=== PATIENT | female | born 1985 | race African-American/Black ===

== ENCOUNTER 2019-04-28 17:42 | Emergency (ER) | payer SELFPAY ==
[~2019-04-28] VITALS: Ht 170.2 cm; Wt 90.7 kg
[2019-04-28 17:48] VITALS: BP_SYST 143
--- NOTE | 2019-04-28 17:48 | NUR ---
Placed in room 8. Placed on quality assurance monitor body, blood pressure machine and pulse oximeter. To gown for exam. Side rails up. Report given to Claribel STEWART.
--- NOTE | 2019-04-28 17:50 | NUR ---
Pt BIB EMS s/p 2 min tonic clonic seizure. Pt able to comprehend verbal questions, but only able to respond by nodding and shaking head. Denies n/v/d/sob/cp. No other injuries/complaints per pt/noted. Will continue to monitor.
[2019-04-28] MEDS ORDERED: levETIRAcetam 500 MG in NS 100 ML IV ONE (18:00)
--- NOTE | 2019-04-28 18:10 | NUR ---
Keppra 500mg/100mL NS not loaded in pyxis. Pharmacy was informed. Per pharmacy, medication will be brought to ED.
[2019-04-28 18:14] LABS: BASOPHILS % (AUTO) 0.4 % (0.0-2.0); EOSINOPHILS # (AUTO) 0.1 K/uL (0.0-0.4); EOSINOPHILS % (AUTO) 0.9 % (0.0-4.0); HEMATOCRIT 36.8 % (36-48); HEMOGLOBIN 11.7 g/dL (12.0-16.0); LYMPHOCYTES % (AUTO) 40.8 % (20.5-51.5); MEAN CORPUSCULAR HEMOGLOBIN 24 pg (27-31); MEAN CORPUSCULAR HGB CONC 32 % (32-36); MEAN CORPUSCULAR VOLUME 77 fL (79.0-98.0); MONOCYTES # (AUTO) 0.6 K/uL (0.0-1.0); MONOCYTES % (AUTO) 8.2 % (1.7-9.3); NEUTROPHILS # (AUTO) 3.6 K/uL (1.8-7.7); NEUTROPHILS % (AUTO) 49.7 % (40.0-70.0); PLATELET COUNT (AUTO) 349 K/uL (130-430); RED BLOOD CELL COUNT(AUTO) 4.81 MIL/uL (4.2-6.2); RED CELL DISTRIBUTION WIDTH 15.3 % (9.0-15.0); WHITE BLOOD COUNT (AUTO) 7.3 K/uL (4.8-10.8)
[2019-04-28 18:22] LABS: CALCIUM 9.8 mg/dL (8.4-11.0); CREATININE 1.09 mg/dL (0.55-1.30); POTASSIUM 3.5 mmol/L (3.5-5.1)
[2019-04-28 18:27] LABS: ALBUMIN 3.7 g/dL (3.4-4.8); TOTAL BILIRUBIN 0.3 mg/dL (0.0-1.0)
--- NOTE | 2019-04-28 18:40 | NUR ---
PT taken to radiology via [facility] in stable condition accompanied by Claribel STEWART.
--- NOTE | 2019-04-28 18:55 | NUR ---
Medication administered. Pt tolerated well. No adverse reactions noted.
--- NOTE | 2019-04-28 19:44 | NUR ---
Pt resting comfortably in bed with no signs of distress.
--- NOTE | 2019-04-28 20:15 | NUR ---
Pt now speaking in full sentences, states "My head hurts and my body is on fire." ER Dr. Quiroz at examining updating patient.
[2019-04-28] MEDS ORDERED: ONDANSETRON HCL 4 MG/2 ML VIAL IVP ONE (20:30)
[2019-04-28] MEDS ORDERED: KETOROLAC TROMETHAMINE 30 MG VIAL IVP ONE (20:30)
--- NOTE | 2019-04-28 20:41 | NUR ---
Medication administered. Pt tolerated well. No adverse reactions noted.
[2019-04-28 21:12] VITALS: BP_SYST 136
--- NOTE | 2019-04-28 21:12 | NUR ---
Patient given written and verbal discharge instructions and verbalizes understanding. ER MD discussed with patient the results and treatment provided. Patient in stable condition. ID arm band removed. IV catheter removed intact and dressing applied, no active bleeding. Rx of Zofran and Ativan given. Patient educated on pain management and to follow up with PMD. Pain Scale 0. Opportunity for questions provided and answered. Medication side effect fact sheet provided.
== END 2019-04-28 21:12 | disposition home or self-care (01) ==
LOC: SED 17:42
DX: G40.802 Other epilepsy, not intractable, without status epilepticus (principal); Z88.0 Allergy status to penicillin
CPT/HCPCS: 36415; 70450; 80053; 81025; 84703; 85025; 96365; 96375; 99284; J1885; J1953; J2405